=== PATIENT | female | born 1985 | race Caucasian/White ===

== ENCOUNTER 2023-06-29 16:11 | Inpatient (IN) | payer OTHER ==
[2023-06-29] VITALS (22 sets, daily range): BP systolic 85–202; BP diastolic 16–112; PULSE 72–99; TEMP 98–98.1
[~2023-06-29] VITALS: Ht 157.5 cm; Wt 91.3 kg
[2023-06-29] MEDS ORDERED: LR 1,000 ML IV PRN ×2 (16:45→20:00)
[2023-06-29 17:16] LABS: BASO % 0.2 % (0.0-2.0); EOS % 0.3 % (0.0-4.0); GRAN # 9.5 K/mm3 (1.4-6.5); GRAN % 67.3 % (42.2-75.2); HEMATOCRIT 39.8 % (37.0-47.0); HEMOGLOBIN 13.3 g/dl (12.5-16.0); LYMPH # 3.7 K/mm3 (1.2-3.4); LYMPH % 25.9 % (20.0-51.0); MEAN CELL VOLUME 93 fl (80.0-100.0); MEAN CORPUSCULAR HEMOGLOBIN 31 pg (27-31); MEAN CORPUSCULAR HGB CONC 33 g/dl (33.0-37.0); MEAN PLATELET VOLUME 10.2 fl (7.4-10.4); MONO # 0.8 K/mm3 (0.1-0.6); MONO % 5.9 % (1.7-9.3); PLATELET COUNT 357 K/mm3 (130-400); RED BLOOD COUNT 4.27 M/mm3 (4.10-5.30); REDCELL DISTRIBUTION WIDTH-CV 13.7 % (11.5-14.5)
[2023-06-29] MEDS ORDERED: LEVOXYL0.025 MG PO (17:18)
[2023-06-29] MEDS ORDERED: GLUCOPHAGE500 MG/TAB PO (17:19)
[2023-06-29] MEDS ORDERED: PRENATAL TABLET PO (17:20)
[2023-06-29] MEDS ORDERED: MAGNESIUM200 MG (17:20)
[2023-06-29] MEDS ORDERED: ASPIRIN 81M81 MG/TA2 PO (17:21)
--- NOTE | 2023-06-29 17:29 | NUR ---
1729 ALF CONDE VISUALIZES STRIP, BP'S. UPDATED ON LABS DRAWN/PENDING. NO NEW ORDERS AT THIS TIME
[2023-06-29 17:36] LABS: ALBUMIN 2.8 gm/dL (3.5-5.0); BILIRUBIN,TOTAL 0.3 mg/dL (0.2-1.2); CALCIUM 10.1 mg/dL (8.4-10.2); CREATININE, serum 0.74 mg/dL (0.57-1.11); POTASSIUM 3.8 mmol/L (3.5-4.5); TOTAL PROTEIN 6.9 gm/dL (6.2-8.1)
--- NOTE | 2023-06-29 17:48 | NUR ---
ALF CONDE UPDATED ON BP'S, ORDERS TO MAKE PT NPO AT THIS TIME AND STATES SHE WILL BE BEDSIDE TO SCAN FOR PRESENTATION SHORTLY
[2023-06-29 17:54] LABS: COLLECTION METHOD CLEAN CATCH
[2023-06-29 17:55] LABS: URINE APPEARANCE CLEAR (CLEAR/HAZY); URINE BLOOD NEGATIVE (NEGATIVE); URINE COLOR YELLOW (YELLOW); URINE GLUCOSE NEGATIVE (NEGATIVE); URINE KETONE NEGATIVE (NEGATIVE); URINE NITRATE NEGATIVE (NEGATIVE); URINE PROTEIN(semi-quant) TRACE (NEGATIVE); URINE UROBILINOGEN 0.2 E.U/dL (0.2-1.0)
--- NOTE | 2023-06-29 18:07 | NUR ---
1800 ALF CONDE BEDSIDE; SCANNING WITH ULTRASOUND FOR PRESENTATION. VERTEX PRESENTATION CONFIRMED. 1805 ALF CONDE DISCUSSING POC AND OPTIONS WITH PT AND SPOUSE
[2023-06-29] MEDS ORDERED: LR 1,000 ML IV SCH ×2 (19:00→19:15)
[2023-06-29] MEDS ORDERED: Meperidine 50 MG/ML 1 ML VIAL IV PRN (19:15)
[2023-06-29] MEDS ORDERED: Ondansetron 4 MG/2 ML VIAL IV PRN ×2 (19:15→20:00)
[2023-06-29] MEDS ORDERED: diphenhydrAMINE 50 MG/ML 1 ML VIAL IV PRN (19:15)
[2023-06-29] MEDS ORDERED: Oxytocin 10 UNITS/ML VIAL ONE (19:36)
[2023-06-29] MEDS ORDERED: dexAMETHasone 10 MG/ML VIAL ONE (19:36)
[2023-06-29] MEDS ORDERED: NS 30 ML IV ONE (19:36)
[2023-06-29] MEDS ORDERED: Ketorolac 30 MG/ML VIAL ONE (19:36)
[2023-06-29] MEDS ORDERED: Ondansetron 4 MG/2 ML VIAL ONE (19:36)
[2023-06-29] MEDS ORDERED: Phenylephrine 10 MG/ML VIAL ONE (19:37)
[2023-06-29] MEDS ORDERED: Loratadine 10 MG TAB PO PRN (20:00)
[2023-06-29] MEDS ORDERED: oxyCODONE 5 MG TAB PO PRN (20:00)
[2023-06-29] MEDS ORDERED: Naloxone 0.4 MG/ML VIAL IV PRN (20:00)
[2023-06-29] MEDS ORDERED: Acetaminophen 500 MG TAB PO PRN (20:00)
[2023-06-29] MEDS ORDERED: Measles/Mumps/Rubella Virus Vaccine Live w Diluent 0.5 ML VIAL SQ SCH (20:00)
[2023-06-29] MEDS ORDERED: Magnes Hydrox (MOM) 80 MG/ML 30 ML CUP PO PRN (20:00)
[2023-06-29] MEDS ORDERED: EPINEPHrine 1 MG/1 ML Ampule ONE (20:35)
[2023-06-29] MEDS ORDERED: traZODone 50 MG TAB PO PRN (21:00)
--- NOTE | 2023-06-29 23:23 | NUR ---
Viable female fetus delivered via primary section due to maternal gestational hypertension. Once delivered, Dr Richmond places on sterile field, dries and stimulates , and bulb suction . Cord clamped and cut by Dr Barr and then shown to parents and taken to radiant warmer. Care of infant taken over by nursery RN at this time.
[2023-06-30] VITALS: BP 155/92; PULSE 67
[2023-06-30] MEDS ORDERED: SYNTHROID 0.0.025 MG PO (00:06)
[2023-06-30] MEDS ORDERED: MAGNESIUM200 MG PO (00:07)
[2023-06-30] MEDS ORDERED: Ibuprofen 800 MG TAB PO SCH (02:00)
[2023-06-30] MEDS ORDERED: Morphine 4 MG/ML VIAL IV PRN (04:30)
--- NOTE | 2023-06-30 04:30 | NUR ---
0430 C/O INC PAIN 11/20 AND FEELING ANXIOUS BECAUSE CANNOT MOVE LEGS. CAN MOVE LEGS WELL BUT DOES NOT WANT TO FEEL THE PAIN WHEN MOVING. BINDER OFF PER REQUEST. DR MILNER NOTIFIED OF PAIN AND ORDER RECEIVED. 0435 MORPHINE 2 MG IV AND REGLAN 4 MG IV FOR PAIN AND NAUSEA WITH SOME RELIEF. NOT FEELING ANXIOUS NOW. LIGHTS OUT TO SLEEP.
[2023-06-30] MEDS ORDERED: Labetalol 100 MG TAB PO SCH (05:13)
[2023-06-30] MEDS ORDERED: oxyCODONE 5 MG TAB PO PRN (05:15)
[2023-06-30 05:30] VITALS: BP 136/89; PULSE 89; TEMP 98
[2023-06-30] MEDS ORDERED: MOTRIN 800800 MG/TAB PO (06:12)
[2023-06-30] MEDS ORDERED: PERCOCET 325 MG1 TA2 PO (06:13)
[2023-06-30 07:15] VITALS: BP 142/97; PULSE 84; TEMP 98.5
[2023-06-30] MEDS ORDERED: Sennosides/Docusate 8.6-50 MG TAB PO SCH (08:00)
[2023-06-30 17:44] VITALS: BP 150/97; PULSE 97; TEMP 98.4
[2023-06-30 20:00] VITALS: BP 138/78; PULSE 99; TEMP 98.2
[2023-07-01 01:59] VITALS: BP 128/80; PULSE 90; TEMP 98.4
[2023-07-01 05:30] VITALS: BP 138/88; PULSE 78
[2023-07-01 07:00] VITALS: BP 142/86; PULSE 89
--- NOTE | 2023-07-01 08:25 | NUR ---
PATIENT UP AND SHOWERED. DRESSING REMOVED. INC CDI. ASSISTED WITH REAPPLYING ABD BINDER AND INT REMOVED.
--- NOTE | 2023-07-01 13:40 | NUR ---
Initial visit attempt; Patient Indisposed, Threading Machine Feeder Automatic left card offering congratuations and God's blessings for the of their daughter.
[2023-07-01 15:30] VITALS: BP 141/87; PULSE 100; TEMP 97.7
[2023-07-01 19:50] VITALS: BP 138/88; PULSE 105; TEMP 98.8
[2023-07-02 07:30] VITALS: BP 142/102; PULSE 83; TEMP 98.8
--- NOTE | 2023-07-02 10:18 | NUR ---
Initial visit; Parents thanked Industrial Relations Representative for looking in on them and offering God's blessings and congratulations for the of their daughter. Industrial Relations Representative thanked family for choosing [facility].
--- NOTE | 2023-07-02 12:02 | NUR ---
pt given both written and verbal discharge instructions and all questions answered. RN walked pt/infant/spouse out to car.
== END 2023-07-02 11:50 | disposition home or self-care (01) | DRG 788 ==
LOC: LDRO 16:11 → OB 19:00 → LDR 19:00 → EDSTATUS 19:46 → OB 21:30
PROVIDERS: ADMIT Obstetrics & Gynecology
PROC: 10D00Z1 Extraction of Products of Conception, Low, Open Approach (ICD-10-PCS; principal; 2023-06-29)
DX: O13.4 Gestational [pregnancy-induced] hypertension without significant proteinuria, complicating childbirth (principal); O99.284 Endocrine, nutritional and metabolic diseases complicating childbirth; E28.2 Polycystic ovarian syndrome; O99.344 Other mental disorders complicating childbirth; F41.9 Anxiety disorder, unspecified; E06.3 Autoimmune thyroiditis; O99.52 Diseases of the respiratory system complicating childbirth; E03.9 Hypothyroidism, unspecified; F32.A Depression, unspecified; J45.909 Unspecified asthma, uncomplicated; O43.123 Velamentous insertion of umbilical cord, third trimester; O99.214 Obesity complicating childbirth; Z3A.38 38 weeks gestation of pregnancy; Z37.0 Single live birth; Z23 Encounter for immunization; Z79.890 Hormone replacement therapy; Z88.0 Allergy status to penicillin
CPT/HCPCS: J0171; J0665; J0690; J1100; J1885; J2371; J2405; J2590; J7120